=== PATIENT | male | born 1955 | race Caucasian/White ===

== ENCOUNTER 2019-11-08 15:58 | Inpatient (IN) | payer MEDICAID ==
[2019-11-08] MEDS ORDERED: Sodium Chloride 0.9% 10 ML Syringe FLUSH PRN (17:37)
[2019-11-08] MEDS ORDERED: Pantoprazole 40 MG Vial IVPUSH ONE (17:37)
[2019-11-08] MEDS ORDERED: Octreotide 100 MCG/ML SDV IVPUSH ONE (17:39)
[2019-11-08] MEDS ORDERED: Lactated Ringers 1,000 ML IV ONE (17:39)
--- NOTE | 2019-11-08 17:44 | EDM.PDOC ---
<OfficerEitan - Last Filed: 11/08/19 17:41> ED HPI GENERAL MEDICAL PROBLEM - General Chief Complaint: Gastrointestinal Problem Stated Complaint: STOMACH PAIN, BLOOD IN STOOL Time Seen by Provider: 11/08/19 17:30 Source of Information: Reports: Patient, Family, RN Notes Reviewed History Limitations: Reports: No Limitations - History of Present Illness INITIAL COMMENTS - FREE TEXT/NARRATIVE: 64-year-old gentleman presents emergency department today complaint of black tarry stools, he states he has had stools like this for the past 3 days he has felt lightheaded and dizzy at times. Does have a history of upper GI bleeding related to NSAIDs in the past however he is never had an EGD he does admit to daily alcohol consumption. Denies any shortness of breath or chest pain Abdominal Pain Score (Numeric/FACES): 4 - Related Data Home Meds: Home Meds NK [No Known Home Meds] 11/08/19 [History] Past Medical History HEENT History: Reports: Cataract Cardiovascular History: Reports: High Cholesterol, Hypertension Genitourinary History: Reports: BPH Psychiatric History: Reports: Addiction - Past Surgical History HEENT Surgical History: Reports: Cataract Surgery GI Surgical History: Reports: Hernia Repair/Other Social & Family History - Tobacco Use Smoking Status *Q: Light Tobacco Smoker Years of Tobacco use: 20 Packs/Tins Daily: 2 - Alcohol Use Days Per Week of Alcohol Use: 7 Number of Drinks Per Day: 3 Total Drinks Per Week: 21 - Recreational Drug Use Recreational Drug Use: Yes Recreational Drug Type: Reports: Marijuana/Hashish Recreational Drug Use Frequency: Daily ED ROS GENERAL - Review of Systems Review Of Systems: See Below Constitutional: Reports: No Symptoms HEENT: Reports: No Symptoms Respiratory: Reports: No Symptoms Cardiovascular: Reports: Lightheadedness GI/Abdominal: Reports: Black Stool, Bloody Stool : Reports: No Symptoms Musculoskeletal: Reports: No Symptoms ED EXAM, GI/ABD - Physical Exam Exam: See Below Exam Limited By: No Limitations General Appearance: Alert, WD/WN, No Apparent Distress Eyes: Bilateral: Pale Conjunctiva Respiratory/Chest: No Respiratory Distress, Lungs Clear, Normal Breath Sounds, No Accessory Muscle Use, Chest Non-Tender Cardiovascular: Regular Rate, Rhythm, No Murmur GI/Abdominal Exam: Normal Bowel Sounds, Soft, Non-Tender Rectal (Males) Exam: Normal Rectal Tone, Bloody Stool, Heme + Stool. No: Hemorrhoids, Perirectal Abscess, Prostate Nodule, Rectal Fissure, Tenderness Course - Vital Signs Last Recorded V/S: Last Vital Signs Temp 97.6 F 11/08/19 20:50 Pulse 82 11/08/19 20:50 Resp 20 11/08/19 20:50 BP 120/76 11/08/19 20:50 Pulse Ox 96 11/08/19 20:50 - Orders/Labs/Meds Orders: Active Orders 24 hr Category Date Time Status Head of Bed Elevation [RC] ASDIRECTED Care 11/08/19 17:37 Active Peripheral IV Care [RC] . DIRECTED Care 11/08/19 17:38 Active Peripheral IV Care [RC] . DIRECTED Care 11/08/19 17:39 Active Iopamidol [Isovue-300 (61%)] Med 11/08/19 19:00 Active 136 ml IV ASDIRECTED Sodium Chloride 0.9% [Normal Saline] 80 ml Med 11/08/19 19:00 Active IV ASDIRECTED Sodium Chloride 0.9% [Saline Flush] Med 11/08/19 17:37 Active 10 ml FLUSH ASDIRECTED PRN Sodium Chloride 0.9% [Saline Flush] Med 11/08/19 17:39 Active 10 ml FLUSH ASDIRECTED PRN Peripheral IV Insertion Adult [OM.PC] Urgent Oth 11/08/19 17:37 Ordered Peripheral IV Insertion Adult [OM.PC] Urgent Oth 11/08/19 17:38 Ordered Medication Orders Diphenhydramine HCl (Benadryl) 25 - 50 mg PO Q4H PRN PRN Reason: ITCHING Diphenhydramine HCl (Benadryl) 25 - 50 mg IVPUSH Q4H PRN PRN Reason: ITCHING Last Admin: 11/08/19 21:28 Dose: 50 mg Fentanyl (Sublimaze) 10 - 25 mcg IVPUSH Q1H PRN PRN Reason: Pain Sodium Chloride (Normal Saline) 80 mls @ 3 mls/sec IV ASDIRECTED JENNIFER Last Admin: 11/08/19 19:10 Dose: 3 mls/sec Sodium Chloride (Normal Saline) 1,000 mls @ 125 mls/hr IV ASDIRECTED JENNIFER Last Admin: 11/08/19 21:15 Dose: 125 mls/hr Piperacillin Sod/Tazobactam (Sod 4.5 gm/ Sodium Chloride) 100 mls @ 100 mls/hr IV Q8H JENNIFER Iopamidol (Isovue-300 (61%)) 136 ml IV ASDIRECTED JENNIFER Last Admin: 11/08/19 19:10 Dose: 136 ml Nicotine (Habitrol) 14 mg TRDERM Q24H PRN PRN Reason: NICOTINE WITHDRAWAL Ondansetron HCl (Zofran) 4 mg IVPUSH Q8H PRN PRN Reason: Nausea Promethazine HCl (Phenergan) 12.5 - 25 mg IV Q8H PRN PRN Reason: NAUSEA Scopolamine (Transderm-Scop) 1.5 mg TOP Q72H PRN PRN Reason: NAUSEA Sodium Chloride (Saline Flush) 10 ml FLUSH ASDIRECTED PRN PRN Reason: Keep Vein Open Last Admin: 11/08/19 18:11 Dose: 10 ml Sodium Chloride (Saline Flush) 10 ml FLUSH ASDIRECTED PRN PRN Reason: Keep Vein Open Last Admin: 11/08/19 19:10 Dose: 10 ml Admin: 11/08/19 18:11 Dose: 10 ml Labs: Laboratory Tests 11/08/19 11/08/19 11/08/19 Range/Units 17:43 17:43 17:43 WBC 11.2 H (4.5-11.0) K/uL RBC 4.43 (4.30-5.90) M/uL Hgb 14.5 (12.0-15.0) g/dL Hct 44.2 (40.0-54.0) % MCV 100 H (80-98) fL MCH 33 H (27-31) pg MCHC 33 (32-36) % Plt Count 221 (150-400) K/uL Neut % (Auto) 77 H (36-66) % Lymph % (Auto) 8 L (24-44) % Mcnairy % (Auto) 15 H (2-6) % Eos % (Auto) 0 L (2-4) % Baso % (Auto) 0 (0-1) % PT 10.8 (9.5-12.0) sec INR 1.00 (0.80-1.20) APTT 27.8 (27.0-36.0) sec Sodium 135 L (140-148) mmol/L Potassium 4.9 (3.6-5.2) mmol/L Chloride 100 (100-108) mmol/L Carbon Dioxide 27 (21-32) mmol/L Anion Gap 12.9 (5.0-14.0) mmol/L BUN 35 H (7-18) mg/dL Creatinine 1.0 (0.8-1.3) mg/dL Est Cr Clr Drug Dosing 80.53 mL/min Estimated GFR (MDRD) > 60 (>60) Glucose 117 H (74-106) mg/dL Lactic Acid (0.4-2.0) mmol/L Calcium 8.2 L (8.5-10.1) mg/dL Total Bilirubin 0.9 (0.2-1.0) mg/dL AST 31 (15-37) U/L ALT 20 (12-78) U/L Alkaline Phosphatase 92 (46-116) U/L Total Protein 6.4 (6.4-8.2) g/dL Albumin 2.8 L (3.4-5.0) g/dL Globulin 3.6 H (2.3-3.5) g/dL Albumin/Globulin Ratio 0.8 L (1.2-2.2) 11/08/19 Range/Units 17:47 WBC (4.5-11.0) K/uL RBC (4.30-5.90) M/uL Hgb (12.0-15.0) g/dL Hct (40.0-54.0) % MCV (80-98) fL MCH (27-31) pg MCHC (32-36) % Plt Count (150-400) K/uL Neut % (Auto) (36-66) % Lymph % (Auto) (24-44) % Mcnairy % (Auto) (2-6) % Eos % (Auto) (2-4) % Baso % (Auto) (0-1) % PT (9.5-12.0) sec INR (0.80-1.20) APTT (27.0-36.0) sec Sodium (140-148) mmol/L Potassium (3.6-5.2) mmol/L Chloride (100-108) mmol/L Carbon Dioxide (21-32) mmol/L Anion Gap (5.0-14.0) mmol/L BUN (7-18) mg/dL Creatinine (0.8-1.3) mg/dL Est Cr Clr Drug Dosing mL/min Estimated GFR (MDRD) (>60) Glucose (74-106) mg/dL Lactic Acid 2.3 H (0.4-2.0) mmol/L Calcium (8.5-10.1) mg/dL Total Bilirubin (0.2-1.0) mg/dL AST (15-37) U/L ALT (12-78) U/L Alkaline Phosphatase (46-116) U/L Total Protein (6.4-8.2) g/dL Albumin (3.4-5.0) g/dL Globulin (2.3-3.5) g/dL Albumin/Globulin Ratio (1.2-2.2) Meds: Medications Generic Name Dose Route Start Last Admin Trade Name Freq PRN Reason Stop Dose Admin Diphenhydramine HCl 25 - 50 mg 11/08/19 20:55 Benadryl PO Q4H PRN ITCHING Diphenhydramine HCl 25 - 50 mg 11/08/19 20:56 11/08/19 21:28 Benadryl IVPUSH 50 mg Q4H PRN Administration ITCHING Fentanyl 10 - 25 mcg 11/08/19 21:46 Sublimaze IVPUSH Q1H PRN Pain Sodium Chloride 80 mls @ 3 mls/sec 11/08/19 19:00 11/08/19 19:10 Normal Saline IV 3 mls/sec ASDIRECTED JENNIFER Administration Sodium Chloride 1,000 mls @ 125 mls/hr 11/08/19 21:00 11/08/19 21:15 Normal Saline IV 125 mls/hr ASDIRECTED JENNIFER Administration Piperacillin Sod/Tazobactam 100 mls @ 100 mls/hr 11/08/19 22:00 Sod 4.5 gm/ Sodium Chloride IV Q8H JENNIFER Iopamidol 136 ml 11/08/19 19:00 11/08/19 19:10 Isovue-300 (61%) IV 136 ml ASDIRECTED JENNIFER Administration Nicotine 14 mg 11/08/19 20:56 Habitrol TRDERM Q24H PRN NICOTINE WITHDRAWAL Ondansetron HCl 4 mg 11/08/19 20:52 Zofran IVPUSH Q8H PRN Nausea Promethazine HCl 12.5 - 25 mg 11/08/19 20:54 Phenergan IV Q8H PRN NAUSEA Scopolamine 1.5 mg 11/08/19 20:53 Transderm-Scop TOP Q72H PRN NAUSEA Sodium Chloride 10 ml 11/08/19 17:37 11/08/19 18:11 Saline Flush FLUSH 10 ml ASDIRECTED PRN Administration Keep Vein Open Sodium Chloride 10 ml 11/08/19 17:39 11/08/19 19:10 Saline Flush FLUSH 10 ml ASDIRECTED PRN Administration Keep Vein Open Discontinued Medications Generic Name Dose Route Start Last Admin Trade Name Freq PRN Reason Stop Dose Admin Fentanyl 50 mcg 11/08/19 18:27 11/08/19 18:38 Sublimaze IVPUSH 11/08/19 18:28 50 mcg ONETIME ONE Administration Lactated Ringer's 1,000 mls @ 999 mls/hr 11/08/19 17:39 11/08/19 18:12 Ringers, Lactated IV 11/08/19 18:39 999 mls/hr BOLUS ONE Administration Octreotide Acetate 500 mcg/ 500 mls @ 50 mls/hr 11/08/19 17:45 11/08/19 21:59 Sodium Chloride IV Not Given Q10H JENNIFER 50 MCG/HR Ertapenem 1 gm/ Sodium 100 mls @ 200 mls/hr 11/08/19 20:10 11/08/19 21:14 Chloride IV 11/08/19 20:39 200 mls/hr ONETIME ONE Administration Morphine Sulfate 1 - 3 mg 11/08/19 21:07 11/08/19 21:19 Morphine IVPUSH 2 mg Q1H PRN Administration Pain (moderate 4-6) Octreotide Acetate 50 mcg 11/08/19 17:39 11/08/19 21:59 Sandostatin IVPUSH 11/08/19 17:40 Not Given ONETIME ONE Pantoprazole Sodium 40 mg 11/08/19 17:37 11/08/19 18:11 Protonix Iv IVPUSH 11/08/19 17:38 40 mg ONETIME ONE Administration Departure - Departure Disposition: Admitted As Inpatient 67 Clinical Impression: Ischemic colitis Abdominal pain Qualifiers: Abdominal location: lower abdomen, unspecified Qualified Code(s): R10.30 - Lower abdominal pain, unspecified - Discharge Information Sepsis Event Note - Evaluation Sepsis Screening Result: No Definite Risk - Focused Exam Vital Signs: Vital Signs Temp Pulse Resp BP Pulse Ox 11/08/19 19:41 76 128/82 100 11/08/19 18:23 69 120/90 98 11/08/19 18:06 58 L 111/72 98 11/08/19 16:31 97.6 F 89 16 122/83 97 11/08/19 16:21 97.6 F 89 16 122/83 97 Date Exam was Performed: 11/08/19 Time Exam was Performed: 17:41 - My Orders Last 24 Hours: My Active Orders 11/08/19 19:00 Iopamidol [Isovue-300 (61%)] 136 ml IV ASDIRECTED Sodium Chloride 0.9% [Normal Saline] 80 ml IV ASDIRECTED - Assessment/Plan Last 24 Hours: My Active Orders 11/08/19 19:00 Iopamidol [Isovue-300 (61%)] 136 ml IV ASDIRECTED Sodium Chloride 0.9% [Normal Saline] 80 ml IV ASDIRECTED <Ammon Hendricks - Last Filed: 11/08/19 22:11> Course - Re-Assessments/Exams Free Text/Narrative Re-Assessment/Exam: 11/08/19 20:00 64-year-old male with abdominal pain and rectal bleeding for the past 3 days, care turned over from Officer pending CT scan. Results below IMPRESSION: 1. Abnormally dilated small bowel and thickening of distal small bowel. This probably represents an ileus rather than mechanical obstruction. However, the cecum and a portion of the ascending colon are distended, thin-walled and present with probable pneumatosis raising the possibility of ischemia. Clinical correlation regarding this finding is advised. There is moderate ascites but no free air or air within the mesenteric venous system 2. Subcutaneous fluid collection dorsally likely unrelated to the above process. Please review the comment regarding this finding 3. Discussed with Ammon Hendricks MD, at 7:40 p.m. on 11/08/2019 Findings were discussed with Dr. Banks, he kindly agreed to admit the patient for further treatment and evaluation. Departure - Departure Time of Disposition: 20:25 Sepsis Event Note - Focused Exam Date Exam was Performed: 11/08/19 Time Exam was Performed: 22:11
[2019-11-08] MEDS ORDERED: Octreotide 500 MCG in Sodium Chloride 0.9% 497.5 ML IV SCH (17:45)
[2019-11-08] MEDS: Sodium Chloride 0.9% 10 ML Syringe FLUSH PRN ×2 (18:11→19:10)
[2019-11-08] MEDS ORDERED: fentaNYL 100 MCG/2 ML SDV IVPUSH ONE (18:27)
[2019-11-08] MEDS ORDERED: Iopamidol 612 MG/ML 200 ML Bottle IV SCH (19:00)
[2019-11-08] MEDS ORDERED: Sodium Chloride 0.9% 80 ML IV SCH (19:00)
--- NOTE | 2019-11-08 19:54 | CRLCT ---
INDICATION: Abdominal pain COMPARISON: None TECHNIQUE: CT examination of the abdomen and pelvis was performed following the uneventful intravenous administration of 136 cc of Isovue-300. Thin section axial images were obtained from the lung bases through the pubic symphysis. Oral contrast was not administered. Please note that all CT scans at this facility use dose modulation, iterative reconstruction, and/or weight-based dosing when appropriate to reduce radiation dose to as low as reasonably achievable. FINDINGS: LUNG BASES: Linear opacities at the lung bases are likely related to atelectasis. Heart size is normal at the lung basesthe heart size is normal at the lung bases. LIVER/BILIARY SYSTEM:The liver is normal in size and configuration. No mass or biliary ductal dilatation. Small incidental cysts. Gallbladder appears normal ADRENALS: Normal KIDNEYS, URETERS and BLADDER:The kidneys appear normal. No visible mass, calculus or hydronephrosis. The ureters and bladder as visualized appear normal. SPLEEN:Normal appearance. PANCREAS: Appears normal. RETROPERITONEUM and MESENTERY: There are atherosclerotic vascular calcifications diffusely. There is mild fusiform dilatation distally at 3 centimeters. Ectasias of the iliacs arteries. GASTROINTESTINAL SYSTEM: There is moderate diffuse dilation of small bowel. There is also bowel wall thickening of the distal small bowel best seen in the right lower quadrant on image 107. There is fluid distention of the cecum and ascending colon and there are findings of pneumatosis of the ascending colon. This is best seen on coronal image 41. There is mild fluid distention of large bowel elsewhere. This does not appear to represent a mechanical obstruction. The small bowel findings are likely an ileus. The findings of pneumatosis are worrisome for the possibility of ischemic bowel involving the right colon. There is no direct findings ischemia involving the small bowel regarding the enhancement pattern. The wall of the cecum and ascending colon are quite thin in very difficult to evaluate in terms of enhancement pattern. PELVIS: There is no mass or adenopathy. OSSEOUS STRUCTURES and ABDOMINAL WALL: There is an age-appropriate appearance of the osseous structures.No significant abdominal wall defect. OTHER: There is no free air. There is moderate free fluid in the abdomen and pelvis. There is also an elliptical subcutaneous fluid collection dorsal to the entirety of the lumbar spine measuring 9.0 x 4.7 by 25 centimeters which is not likely to be related to the current process. This appears to be relatively simple in terms of its fluid content but could be study by sonography at a clinically appropriate time IMPRESSION: 1. Abnormally dilated small bowel and thickening of distal small bowel. This probably represents an ileus rather than mechanical obstruction. However, the cecum and a portion of the ascending colon are distended, thin-walled and present with probable pneumatosis raising the possibility of ischemia. Clinical correlation regarding this finding is advised. There is moderate ascites but no free air or air within the mesenteric venous system 2. Subcutaneous fluid collection dorsally likely unrelated to the above process. Please review the comment regarding this finding 3. Discussed with Ammon Hendricks MD, at 7:40 p.m. on 11/08/[address] Please note that all CT scans at this facility use dose modulation, iterative reconstruction, and/or weight-based dosing when appropriate to reduce radiation dose to as low as reasonably achievable. Dictated by Jareth Ng MD @ Nov 08 2019 7:30PM Signed by Dr. Jareth Ng @ Nov 08 2019 7:53PM
[2019-11-08] MEDS ORDERED: Ertapenem 1 GM in Sodium Chloride 0.9% 100 ML IV ONE (20:10)
[2019-11-08] MEDS ORDERED: Ondansetron 4 MG/2 ML SDV IVPUSH PRN (20:52)
[2019-11-08] MEDS ORDERED: Scopolamine 1.5 MG Transdermal Patch TOP PRN (20:53)
[2019-11-08] MEDS ORDERED: Promethazine 25 MG/ML SDV IV PRN (20:54)
[2019-11-08] MEDS ORDERED: diphenhydrAMINE 25 MG Cap PO PRN (20:55)
[2019-11-08] MEDS ORDERED: Nicotine 14 MG/24 Hr Patch TRDERM PRN (20:56)
[2019-11-08] MEDS ORDERED: diphenhydrAMINE 50 MG/ML SDV IVPUSH PRN (20:56)
[2019-11-08] MEDS ORDERED: Morphine 2 MG/ML SYRINGE IVPUSH PRN (21:07)
[2019-11-08] MEDS: Sodium Chloride 0.9% 1,000 ML IV SCH (21:15)
[2019-11-08] MEDS: Piperacillin/Tazobactam 4.5 GM in Sodium Chloride 0.9% 100 ML IV SCH (22:19)
[2019-11-08] MEDS: fentaNYL 100 MCG/2 ML SDV IVPUSH PRN (23:55)
[2019-11-09] MEDS: fentaNYL 100 MCG/2 ML SDV IVPUSH PRN (01:11)
[2019-11-09] MEDS ORDERED: Morphine 4 MG/ML Syringe IVPUSH PRN (01:41)
[2019-11-09] MEDS: Morphine 2 MG/ML SYRINGE IVPUSH PRN ×8 (01:54→16:56)
[2019-11-09] MEDS: Piperacillin/Tazobactam 4.5 GM in Sodium Chloride 0.9% 100 ML IV SCH (05:10)
[2019-11-09] MEDS: Sodium Chloride 0.9% 1,000 ML IV SCH ×3 (07:35→23:42)
[2019-11-09] MEDS ORDERED: Bupivacaine 0.5%/EPINEPHrine 1:200,000 50 ML MDV ONE (09:19)
[2019-11-09] MEDS ORDERED: fentaNYL 250 MCG/5 ML SDV ONE ×2 (11:49→12:55)
[2019-11-09] MEDS ORDERED: Neostigmine Methylsulfate 1 MG/ML 5 ML Syringe ONE (11:50)
[2019-11-09] MEDS ORDERED: Succinylcholine 200 MG/10 ML MDV ONE (11:50)
[2019-11-09] MEDS ORDERED: Dexamethasone 4 MG/ML SDV ONE (11:50)
[2019-11-09] MEDS ORDERED: Ondansetron 4 MG/2 ML SDV ONE (11:50)
[2019-11-09] MEDS ORDERED: Rocuronium 50 MG/5 ML Vial ONE (11:50)
[2019-11-09] MEDS ORDERED: Glycopyrrolate 0.2 MG/ML 5 ML MDV ONE (11:50)
[2019-11-09] MEDS ORDERED: Propofol 200 MG/20 ML SDV ONE (11:50)
[2019-11-09] MEDS ORDERED: Lactated Ringers 1,000 ML ONE (12:42)
[2019-11-09] MEDS ORDERED: Labetalol 20 MG/4 ML Syringe IVPUSH ONE (13:40)
[2019-11-09] MEDS ORDERED: Naloxone 0.4 MG/ML SDV IV PRN (13:45)
[2019-11-09] MEDS ORDERED: Morphine PF 150 MG/30 ML PCA Syringe IV PRN (13:45)
[2019-11-09] MEDS: Labetalol 20 MG/4 ML Syringe IVPUSH PRN ×2 (13:46→13:55)
[2019-11-09] MEDS: Piperacillin/Tazobactam/Dext 4.5 GM in Premix Bag 1 BAG IV SCH ×2 (14:41→22:41)
--- NOTE | 2019-11-09 15:04 | CONS ---
DATE OF SERVICE: 11/09/2019 REFERRING PHYSICIAN: CONSULTING PHYSICIAN: Vikram Banks MD REASON FOR CONSULTATION: Abdominal pain. CONSULTING PHYSICIAN: Ammon Hendricks MD. HISTORY OF PRESENT ILLNESS: This is a 64-year-old male, who presents after having some bloody stools in the last 3 days. He attributed this to upper GI bleeding related to nonsteroidal anti-inflammatory use in the past. The patient also has a significant alcohol consumption. PAST MEDICAL HISTORY: Hypercholesterolemia, hypertension, and marijuana use. SOCIAL HISTORY: He presents with his son today. REVIEW OF SYSTEMS: GENERAL: No significant changes. HEENT: No symptoms. RESPIRATORY: No history of shortness of breath. CARDIOVASCULAR: No history of myocardial infarction. GASTROINTESTINAL: As above and below. GENITOURINARY: No dysuria. MUSCULOSKELETAL: No symptoms. The remainder of review of systems was reviewed and is negative. PHYSICAL EXAMINATION: VITAL SIGNS: Temperature 96.0, blood pressure 136/69, pulse 78, respirations 18, 97% on room air. HEENT: Pupils are equal. NECK: Supple. LUNGS: Clear. CARDIOVASCULAR: Regular rhythm and rate. ABDOMEN: Mildly distended. No rebound. No guarding. Very minimal pain with palpation. IMAGING: CT scan: I did review this, which shows dilated small bowel, which was most likely attributed to an ileus. There was some distention of the cecum in the ascending colon. LABORATORY RESULTS: A decreased white blood cell count of 5.2 and a lactulose of 1.1. ASSESSMENT: Abdominal pain/blood in the stool. PLAN: The patient will be taken to the operating room for diagnostic laparoscopy. Although he feels better and he has very minimal abdominal symptoms, also his white blood cell count is now normal along with his lactate, I still feel it is in the best interest of the patient a diagnostic laparoscopy performed. We discussed the risks, benefits, alternatives, and limitations to that plan including the possibility of colon or small bowel resection, exploratory laparotomy, ostomy formation, and other risks not listed here. The patient understands these risks and wishes to proceed. Vikram Banks MD /[id number]
--- NOTE | 2019-11-09 15:16 | OR ---
DATE OF PROCEDURE: 11/09/2019 SURGEON: Vikram Banks MD PROCEDURES: 1. Diagnostic laparoscopy (71107). 2. Reduction of internal hernia/volvulus (75011). 3. Drainage of fluid collection, most consistent with abscess and causing peritonitis (26165). 4. Wound VAC, less than 50 cm2 (46046). COMPLICATIONS: None. DIRECTOR SPORTS: None. ANESTHESIA: General/local. INDICATIONS: This is a 64-year-old male who had a concern of the colon being enlarged and possibly ischemic. He now has a normal white cell count and normal lactulose. Nonetheless, the patient was recommended to be taken to the operating for diagnostic laparoscopy and indicated procedures. The patient understands these risks and wished to proceed. PROCEDURE IN DETAIL: The patient was placed in supine position. A linear midline abdominal incision was made and a Veress needle was used to enter the abdomen without abnormality. A drop test was performed without abnormality. The abdomen was subsequently insufflated. It was immediately noted that the patient had ischemic concerning small bowel. Therefore, the diagnostic laparoscopy was concluded at this time and exploratory laparotomy was then started. The patient was noted to have a fluid collection in the right quadrant. This was concerning for an infection. It was approximately 10 cm in diameter, containing dark blood- tinged fluid. This was also cultured. This was causing significant peritonitis in that area and throughout the abdomen. In fact, there were also other areas of fluid, similar. The small bowel was inspected in its entirety. There was an internal hernia caused by a piece of omental band, which was transected. The small bowel was then ran in a retrograde and antegrade fashion. There was an area of questionable viability. However, this might be salvageable depending on the ability to recover. The liver was inspected. The gallbladder was enlarged, however, no abnormalities were noted. The colon was inspected. There was no evidence of the concerning area noted on CT scan. An NG tube was placed, and the tube could be palpated in the stomach. At this time, it was determined that the bowel was probably viable. Therefore, the procedure was terminated and a second-look laparotomy will be performed in the morning. The fascia was then closed with #1 Vicryl in a running suture and a wound VAC was then applied. The wound VAC was applied using black foam sponge cut to size, then the overlay plastic, then the track pad. This worked without difficulty. The patient tolerated the procedure well. Vikram Banks MD /[id number]
[2019-11-10] MEDS: Piperacillin/Tazobactam/Dext 4.5 GM in Premix Bag 1 BAG IV SCH ×3 (05:59→21:17)
[2019-11-10] MEDS ORDERED: Bupivacaine 0.5%/EPINEPHrine 1:200,000 50 ML MDV ONE (07:41)
[2019-11-10] MEDS: Sodium Chloride 0.9% 1,000 ML IV SCH ×3 (08:09→21:16)
[2019-11-10] MEDS ORDERED: fentaNYL 250 MCG/5 ML SDV ONE (08:48)
[2019-11-10] MEDS ORDERED: Glycopyrrolate 0.2 MG/ML 5 ML MDV ONE (08:48)
[2019-11-10] MEDS ORDERED: Dexamethasone 4 MG/ML SDV ONE (08:48)
[2019-11-10] MEDS ORDERED: Neostigmine Methylsulfate 1 MG/ML 5 ML Syringe ONE (08:48)
[2019-11-10] MEDS ORDERED: Ondansetron 4 MG/2 ML SDV ONE (08:48)
[2019-11-10] MEDS ORDERED: Rocuronium 50 MG/5 ML Vial ONE (08:48)
[2019-11-10] MEDS ORDERED: Propofol 200 MG/20 ML SDV ONE (08:48)
[2019-11-10] MEDS ORDERED: Enoxaparin 40 MG/0.4 ML Syringe SUBCUT SCH (09:00)
[2019-11-10] MEDS: Labetalol 20 MG/4 ML Syringe IV PRN ×2 (10:08→10:13)
[2019-11-10] MEDS: Enoxaparin 40 MG/0.4 ML Syringe SUBCUT SCH (15:17)
[2019-11-11] MEDS: Sodium Chloride 0.9% 1,000 ML IV SCH ×3 (05:49→21:12)
[2019-11-11] MEDS: Piperacillin/Tazobactam/Dext 4.5 GM in Premix Bag 1 BAG IV SCH ×3 (05:50→21:08)
--- NOTE | 2019-11-11 10:15 | PN ---
DATE OF SERVICE: 11/11/2019 SUBJECTIVE: The patient is stable today. Pain is well controlled. No nausea, vomiting, shortness of breath, or chest pain. Not passing any gas. OBJECTIVE: VITAL SIGNS: Vital signs are stable. CARDIOVASCULAR: Regular rhythm and rate. RESPIRATORY: Lungs are clear to auscultation bilaterally. SKIN: Dressing intact. ASSESSMENT: Status post internal hernia. PLAN: 1. Diet and nutrition. We expect a protracted ileus with this patient. Therefore, we will start TPN in conjunction with a PICC line, and Dietary consultation tomorrow. 2. GI activity. We will keep NG tube in at this time and await for GI function, although due to his current status, this is again expected to be protracted. 3. Infectious Disease. No signs of infectious etiology at this time. 4. Prophylaxis. The patient is on Lovenox 40 mg subcutaneous daily. Ambulation is also encouraged. Incentive spirometry has been ordered. Vikram Banks MD /[id number]
[2019-11-11] MEDS: Enoxaparin 40 MG/0.4 ML Syringe SUBCUT SCH (14:40)
[2019-11-11] MEDS: Labetalol 20 MG/4 ML Syringe IV PRN (16:40)
[2019-11-12] MEDS: Sodium Chloride 0.9% 1,000 ML IV SCH (05:22)
[2019-11-12] MEDS: Piperacillin/Tazobactam/Dext 4.5 GM in Premix Bag 1 BAG IV SCH (05:22)
--- NOTE | 2019-11-12 09:42 | OR ---
DATE OF PROCEDURE: 11/10/2019 SURGEON: Vikram Banks MD PROCEDURE: Reopening of recent laparotomy. FINDINGS: Improvement with small bowel with respect to caliber, color, and viability. PREOPERATIVE DIAGNOSIS: Small-bowel obstruction. POSTOPERATIVE DIAGNOSIS: Small-bowel obstruction. RISKS: Risks, benefits, alternatives, and limitations including, but not limited to infection, bleeding, and perforation of abdominal structures were explained to the patient, who wished to proceed. PROCEDURE IN DETAIL: The patient was placed in supine position. The previous wound VAC was removed. The abdominal cavity was reopened. The sutures were removed. The bowel was ran in its entirety. The area of concern had improved. There was still some erythematous aspect to it. However, stool could be moved through this. Overall, significant improvement comparatively in the last 24 hours. There was some remaining blood and fluid, which was suctioned and thoroughly irrigated with approximately 2 more liters of irrigation. The fascia was closed with #1 Vicryl running x2. Subcutaneous tissue was irrigated and closed with nelida. The patient tolerated the procedure well. /[id number] ADDENDUM: The patient had an umbilical hernia, which was also repaired. This was repaired by resecting the omentum. This was noted to be incarcerated. The size of the umbilical hernia was approximately 1 cm in size. This was closed by using #1 Vicryl sutures in an interrupted fashion. Vikram Banks MD /[id number] [facility] HEALTH SYSTEMJuventino
--- NOTE | 2019-11-12 09:46 | OR ---
DATE OF PROCEDURE: 11/10/2019 SURGEON: Vikram Banks MD PROCEDURE: Rectus block, bilaterally. COMPLICATION: None. TERRITORY MANAGER GENERAL SALES: None. RISKS: Risks, benefits, alternatives, and limitations including, but not limited to infection, bleeding, and injury to abdominal structures were explained to the patient prior to the procedure. They wished to proceed. PROCEDURE IN DETAIL: The patient was placed in supine position. The abdomen was prepped and draped. The rectus sheath was readily identified using a 13 megahertz ultrasound probe. Under direct guidance, the needle was introduced and the entire contents were injected into the left rectus sheath. Epigastric artery was identified and avoided. The same procedure was then performed on the right side in the same manner, same fashion, same technique, in the same sequence, and using the same equipment. Sheath and needle were withdrawn. The patient tolerated the procedure well. Vikram Banks MD /[id number]
[2019-11-12] MEDS: D5 1/2 NS w/ 20 mEq/L KCl 1,000 ML IV SCH ×2 (10:41→23:20)
--- NOTE | 2019-11-12 11:10 | PN ---
DATE OF SERVICE: 11/12/2019 SUBJECTIVE: The patient is stable today. No significant change. No nausea, vomiting, shortness of breath, or chest pain. The patient is not passing any gas yet. OBJECTIVE: VITAL SIGNS: Stable. CARDIOVASCULAR: Regular rhythm and rate. RESPIRATORY: Lungs are clear to auscultation bilaterally. Dressings are intact. ASSESSMENT AND PLAN: We will start the patient on TPN today as we will expect an ileus. We will discontinue the Zosyn and continue all other plans. Vikram Banks MD /[id number]
[2019-11-12] MEDS: Enoxaparin 40 MG/0.4 ML Syringe SUBCUT SCH (15:55)
[2019-11-12] MEDS ORDERED: 1: AA 5%/Calcium/D15W/Lytes 1,000 ML with MVI, Adult with Vitamin K 10 ML, Chromium/Copp IV SCH ×3 (16:00)
[2019-11-12] MEDS ORDERED: Fat Emulsion 100 ML IV SCH (16:00)
--- NOTE | 2019-11-13 12:23 | PN ---
DATE OF SERVICE: 11/13/2019 SUBJECTIVE: The patient is doing well. Some NG output. No nausea, vomiting, shortness of breath, or chest pain. The TPN has not been started due to PICC line problems. OBJECTIVE: VITAL SIGNS: Stable. CARDIOVASCULAR: Regular rhythm and rate. RESPIRATORY: Lungs clear to auscultation bilaterally. GASTROINTESTINAL: Incision healing well. ASSESSMENT: Status post exploratory laparotomy. PLAN: The patient will have his TPN started today via the PICC line. We will . Vikram Banks MD /[id number]
[2019-11-13] MEDS: D5 1/2 NS w/ 20 mEq/L KCl 1,000 ML IV SCH (12:33)
[2019-11-13] MEDS ORDERED: 1: AA 5%/Calcium/D15W/Lytes 1,000 ML with MVI, Adult with Vitamin K 10 ML, Chromium/Copp IV SCH ×3 (16:00)
[2019-11-13] MEDS: Enoxaparin 40 MG/0.4 ML Syringe SUBCUT SCH (16:21)
[2019-11-13] MEDS: 1: AA 5%/Calcium/D15W/Lytes 1,000 ML with MVI, Adult with Vitamin K 10 ML, Chromium/Copp IV SCH ×3 (16:31)
[2019-11-13] MEDS: Fat Emulsion 100 ML IV SCH (18:09)
[2019-11-14] MEDS: 1: AA 5%/Calcium/D15W/Lytes 1,000 ML with MVI, Adult with Vitamin K 10 ML, Chromium/Copp IV SCH ×9 (01:55→13:29)
[2019-11-14] MEDS: Labetalol 20 MG/4 ML Syringe IV PRN (02:15)
--- NOTE | 2019-11-14 09:03 | PN ---
DATE OF SERVICE: 11/14/2019 SUBJECTIVE: The patient continues to slowly improve. He reports he is passing some gas this morning. No nausea, vomiting, shortness of breath, or chest pain. OBJECTIVE: VITAL SIGNS: Stable. CARDIOVASCULAR: Regular rhythm and rate. RESPIRATORY: Lungs clear to auscultation bilaterally. SKIN: Incision healing well ASSESSMENT: Status post exploratory laparotomy. PLAN: 1. GI: As the patient started to have some GI activity, we will await further NG tubing at this time. 2. Prophylaxis. Continue Lovenox. 3. Fluid, electrolyte, nutrition. We will continue IV fluids today and continue same TPN. We will also reorder basic metabolic panel labs in the morning. Vikram Banks MD /[id number]
[2019-11-14] MEDS ORDERED: Central Total Parenteral Nutrition Bag IV ONE (13:00)
[2019-11-14] MEDS: Enoxaparin 40 MG/0.4 ML Syringe SUBCUT SCH (14:45)
[2019-11-14] MEDS: Fat Emulsion 100 ML IV SCH (18:01)
[2019-11-15] MEDS: 1: AA 5%/Calcium/D15W/Lytes 1,000 ML with MVI, Adult with Vitamin K 10 ML, Chromium/Copp IV SCH ×9 (00:12→17:24)
[2019-11-15] MEDS: D5 1/2 NS w/ 20 mEq/L KCl 1,000 ML IV SCH (04:57)
[2019-11-15] MEDS: Docusate Sodium 100 MG Cap PO SCH (08:43)
[2019-11-15] MEDS: Lactulose Soln 10 GM/15 ML 15 ML UD Cup PO SCH ×2 (08:43→22:17)
--- NOTE | 2019-11-15 10:41 | PN ---
DATE OF SERVICE: 11/15/2019 SUBJECTIVE: The patient is doing well today. He is passing gas. He is having bowel movements. Pain is well controlled with minimal medication. No nausea, vomiting, shortness of breath, or chest pain. NG output is minimal. OBJECTIVE: VITAL SIGNS: Stable. CARDIOVASCULAR: Regular rhythm and rate. RESPIRATORY: Lungs clear to auscultation bilaterally. SKIN: Incision is healing well. ASSESSMENT AND PLAN: 1. Gastrointestinal. The patient is having bowel movements and passing gas. We will start him on a clear liquid diet. We will remove his NG tube today. 2. Fluid, electrolyte, and nutrition. We will continue TPN at this time. 3. Prophylaxis. Continue the Lovenox. 4. General disposition. He is ambulating in the hallway and this will obviously be continued to be encouraged. 5. Pain management. We will stop [employer], and we will switch to p.o. pain medications. Vikram Banks MD /[id number]
[2019-11-15] MEDS ORDERED: Central Total Parenteral Nutrition Bag IV SCH (12:00)
[2019-11-15] MEDS: Enoxaparin 40 MG/0.4 ML Syringe SUBCUT SCH (15:02)
[2019-11-15] MEDS: Fat Emulsion 100 ML IV SCH (17:24)
[2019-11-15] MEDS: Acetaminophen/HYDROcodone 325-5 MG Tab PO PRN (23:19)
[2019-11-16] MEDS: 1: AA 5%/Calcium/D15W/Lytes 1,000 ML with MVI, Adult with Vitamin K 10 ML, Chromium/Copp IV SCH ×3 (03:28)
[2019-11-16] MEDS: Lactulose Soln 10 GM/15 ML 15 ML UD Cup PO SCH (09:03)
[2019-11-16] MEDS: Docusate Sodium 100 MG Cap PO SCH (09:03)
--- NOTE | 2019-11-16 09:38 | PN ---
DATE OF SERVICE: 11/16/2019 SUBJECTIVE: The patient is doing better today. Pain is well controlled. No nausea, vomiting, shortness of breath, or chest pain. The patient is having multiple bowel movements. Tolerating diet. OBJECTIVE: VITAL SIGNS: Stable. CARDIOVASCULAR: Regular rhythm and rate. RESPIRATORY: Lungs clear to auscultation bilaterally. SKIN: Incision healing well. PLAN: The patient will be discharged probably later today if he continues to advance his diet. Vikram Banks MD /[id number]
[2019-11-16] MEDS: Acetaminophen/HYDROcodone 325-5 MG Tab PO PRN (16:04)
--- NOTE | 2019-11-30 11:44 | DISCH ---
SUMMARY OF HOSPITAL COURSE: This is a pleasant 64-year-old male who was taken to the operating room for exploratory laparotomy. The patient was noted to have some ischemic bowel, however, a second-look operation did not show any evidence of abnormality. The patient continued to slowly advance on a regular diet. His NG tube was removed, and prior to discharge his pain was well controlled, he had no nausea, vomiting, shortness of breath, or chest pain and was having bowel movements. FOLLOWUP: With Surgery in 7 to 14 days. ACTIVITY: No lifting greater than 30 pounds x30 days.
== END 2019-11-16 16:13 | disposition home or self-care (01) | DRG 353 ==
LOC: JP.ED 15:58 → JP.MS 20:21
PROVIDERS: ADMIT Surgery; ATTEND Surgery
PROC: 0DQV0ZZ Repair Mesentery, Open Approach (ICD-10-PCS; 2019-11-09)
PROC: 0WQF0ZZ Repair Abdominal Wall, Open Approach (ICD-10-PCS; principal; 2019-11-10)
DX: K42.0 Umbilical hernia with obstruction, without gangrene (principal); K65.9 Peritonitis, unspecified; E78.00 Pure hypercholesterolemia, unspecified; F17.210 Nicotine dependence, cigarettes, uncomplicated; R19.5 Other fecal abnormalities; I10 Essential (primary) hypertension; N40.0 Benign prostatic hyperplasia without lower urinary tract symptoms; Z98.49 Cataract extraction status, unspecified eye; Z98.890 Other specified postprocedural states
CPT/HCPCS: 36415; 74177; 80048; 80053; 82270; 83605; 85025; 85027; 85610; 85730; 87070; 87075; 87205; 93005; 94762; 96361; 96374; 96375; 97605; 99285-25; A9270-GY; C1751; C9113; J0171; J0330; J1100; J1200; J1335; J1650; J2270; J2405; J2543; J2704; J2710; J2795; J3010; J3480; J3490; J7030; J7050; J7120; Q9967

== ENCOUNTER 2020-02-07 18:59 | Emergency (ER) | payer MEDICAID ==
[2020-02-07] MEDS ORDERED: Ketorolac 60 MG/2 ML SDV IM ONE (19:35)
--- NOTE | 2020-02-07 19:40 | EDM.PDOC ---
ED HPI GENERAL MEDICAL PROBLEM - General Chief Complaint: Flank Pain Stated Complaint: RT SIDE FLANK/ABD PAIN/URINARY PROBLEM Time Seen by Provider: 02/07/20 19:30 Source of Information: Reports: Patient, Old Records, RN History Limitations: Reports: No Limitations - History of Present Illness INITIAL COMMENTS - FREE TEXT/NARRATIVE: 64 yo female here with R flank pain that began this morning. He has an increased urge to urinate. No blood visible in the urine. No fever or dysuria. No self tx. No hx of kidney stones. No pain with movement or touching the area. Onset: Today, Gradual Onset Date: 02/07/20 Duration: Hour(s): Location: Reports: Back (R flank) Quality: Reports: Ache Severity: Moderate Improves with: Reports: None Worsens with: Reports: Other (unknown) Context: Reports: Other (See HPI) Associated Symptoms: Reports: Nausea/Vomiting (no vomiting). Denies: Fever/ Chills, Rash Treatments SHANK TAPER: Reports: Other (see below) (none) Right Middle Back Pain Score (Numeric/FACES): 8 - Related Data Allergies Allergy/AdvReac Type Severity Reaction Status Date / Time No Known Allergies Allergy Verified 02/07/20 19:23 Home Meds: Home Meds Tamsulosin HCl [Flomax] 0.4 mg PO BEDTIME #6 capsule 02/07/20 [Rx] Past Medical History HEENT History: Reports: Cataract Cardiovascular History: Reports: High Cholesterol, Hypertension Genitourinary History: Reports: BPH Musculoskeletal History: Reports: Back Pain, Chronic Psychiatric History: Reports: Addiction - Infectious Disease History Infectious Disease History: Reports: Chicken Pox - Past Surgical History HEENT Surgical History: Reports: Cataract Surgery GI Surgical History: Reports: Hernia Repair/Other Social & Family History - Family History Family Medical History: Noncontributory - Tobacco Use Smoking Status *Q: Current Every Day Smoker Years of Tobacco use: 3 Packs/Tins Daily: 2 - Caffeine Use Caffeine Use: Reports: Coffee - Alcohol Use Days Per Week of Alcohol Use: 7 Number of Drinks Per Day: 3 Total Drinks Per Week: 21 - Recreational Drug Use Recreational Drug Use: Yes Drug Use in Last 12 Months: Yes Recreational Drug Type: Reports: Marijuana/Hashish Recreational Drug Use Frequency: Daily ED ROS GENERAL - Review of Systems Review Of Systems: See Below Constitutional: Reports: No Symptoms HEENT: Reports: No Symptoms Respiratory: Reports: No Symptoms Cardiovascular: Reports: No Symptoms GI/Abdominal: Reports: Nausea (mild). Denies: Abdominal Pain, Black Stool, Bloody Stool, Constipation, Diarrhea, Distension, Flatus, Hematemesis, Hematochezia, Vomiting : Reports: Flank Pain (right), Urgency (mild), Other (hx of prostate enlargement). Denies: Dysuria, Frequency, Hematuria Skin: Reports: No Symptoms Neurological: Reports: No Symptoms ED EXAM, RENAL/ - Physical Exam Exam: See Below Exam Limited By: No Limitations General Appearance: Alert, WD/WN, Mild Distress (a bit restless) Eye Exam: Bilateral Eye: Normal Inspection Ears: Normal External Exam, Normal Canal, Hearing Grossly Normal Nose: Normal Inspection, No Blood Throat/Mouth: Normal Inspection, Normal Lips, Normal Oropharynx, Normal Voice, No Airway Compromise Head: Atraumatic, Normocephalic Neck: Normal Inspection Respiratory/Chest: No Respiratory Distress, Lungs Clear, Normal Breath Sounds, No Accessory Muscle Use Cardiovascular: Regular Rate, Rhythm, No Edema GI/Abdominal: Soft, Non-Tender Back Exam: No: CVA Tenderness (R), CVA Tenderness (L) Extremities: Normal Inspection Neurological: Alert, Oriented, CN II-XII Intact, Normal Cognition, No Motor/ Sensory Deficits Psychiatric: Normal Affect, Normal Mood Skin Exam: Warm, Dry, Intact, Normal Color, No Rash Course - Vital Signs Text/Narrative:: Wants to hold off on a CT scan for now. Last Recorded V/S: Last Vital Signs Temp 35.6 C L 02/07/20 19:30 Pulse 61 02/07/20 19:30 Resp 16 02/07/20 19:30 BP 160/101 H 02/07/20 19:30 Pulse Ox 99 02/07/20 19:30 - Orders/Labs/Meds Labs: Laboratory Tests 02/07/20 Range/Units 19:21 Urine Color Yellow (YELLOW) Urine Appearance Cloudy A (CLEAR) Urine pH 5.5 (5.0-8.0) Ur Specific [place] >= 1.030 (1.008-1.030) Urine Protein Negative (NEGATIVE) mg/dL Urine Glucose (UA) Negative (NEGATIVE) mg/dL Urine Ketones Negative (NEGATIVE) mg/dL Urine Occult Blood Small H (NEGATIVE) Urine Nitrite Negative (NEGATIVE) Urine Bilirubin Negative (NEGATIVE) Urine Urobilinogen 0.2 (0.2-1.0) EU/dL Ur Leukocyte Esterase Negative (NEGATIVE) Urine RBC 5-10 H (0-5) Urine WBC Not seen (0-5) Ur Epithelial Cells Not seen Amorphous Sediment Many Urine Bacteria Many Urine Mucus Not seen Meds: Medications Discontinued Medications Generic Name Dose Route Start Last Admin Trade Name Freq PRN Reason Stop Dose Admin Ketorolac Tromethamine 60 mg 02/07/20 19:35 02/07/20 19:40 Toradol IM 02/07/20 19:36 60 mg ONETIME ONE Administration - Re-Assessments/Exams Free Text/Narrative Re-Assessment/Exam: 02/07/20 20:24 Good relief with Toradol. Departure - Departure Time of Disposition: 20:25 Disposition: Home, Self-Care 01 Condition: Fair Clinical Impression: Ureterolithiasis - Discharge Information *PRESCRIPTION DRUG MONITORING PROGRAM REVIEWED*: No *COPY OF PRESCRIPTION DRUG MONITORING REPORT IN PATIENT EMILIANO: No Instructions: Kidney Stones, [id number] Referrals: Gene Davis MD [Primary Care Provider] - Forms: ED Department Discharge Additional Instructions: Strain urine and save any sediment. Drink ample fluids so your urine is very light yellow. Starting after 2 am tonight take ibuprofen 400 mg every 6 hrs for pain relief. Add Percocet as directed for added relief. Flomax will aid with passage of the stone. Recheck if pain is not controlled, if a fever develops, or you have not passed the stone by next or Tuesday with your provider. Sepsis Event Note - Evaluation Sepsis Screening Result: No Definite Risk - Focused Exam Vital Signs: Vital Signs Temp Pulse Resp BP Pulse Ox 02/07/20 19:30 35.6 C L 61 16 160/101 H 99 02/07/20 19:09 35.6 C L 61 16 160/101 H 99 Date Exam was Performed: 02/07/20 Time Exam was Performed: 20:24
[2020-02-07] MEDS ORDERED: Tamsulosin 0.4 MG Cap.ER PO ONE (20:25)
== END 2020-02-07 20:45 | disposition home or self-care (01) ==
LOC: JP.ED 18:59
DX: N20.1 Calculus of ureter (principal); F17.210 Nicotine dependence, cigarettes, uncomplicated; I10 Essential (primary) hypertension
CPT/HCPCS: 81001; 96372; 99284; A9270; J1885